=== PATIENT | female | born 1955 | race African-American/Black ===

== ENCOUNTER 2017-05-07 19:00 | Emergency (ER) | payer OTHER ==
[~2017-05-07 19:00] MED LIST: ATROVENTUD INH; BENTYL20 PO; CELEXA40 MG PO; KAPIDEX60 MG PO; KLONO5 PO; KLOR-CON M2020 MEQ PO; LAMICTAL25 PO; METHOC750B PO; MSIMMR15 PO; PR25 PO; SUCR PO; T PO; TRAZ100 PO; TRICOR145 PO; TRILEP150 PO; TRILEPUDL PO; ZESTORETIC1 TA1 PO
== END 2017-05-07 21:36 | disposition home or self-care (01) ==
LOC: ER 19:00
DX: M54.5 Low back pain (principal); I10 Essential (primary) hypertension; F32.9 Major depressive disorder, single episode, unspecified; E11.9 Type 2 diabetes mellitus without complications; F17.200 Nicotine dependence, unspecified, uncomplicated; Z79.899 Other long term (current) drug therapy
CPT/HCPCS: 99283